=== PATIENT | female | born 1970 | race Asian ===

== ENCOUNTER 2023-02-07 08:28 | Outpatient (RCR) | payer OTHER | END 2023-02-23 | disposition home or self-care (01) | LOC: WSPT | DX: I89.0 Lymphedema, not elsewhere classified (principal); Z98.890 Other specified postprocedural states; Z90.11 Acquired absence of right breast and nipple ==

== ENCOUNTER 2023-03-05 08:00 | Outpatient (RCR) | payer OTHER | END 2023-03-26 | disposition home or self-care (01) | LOC: WSPT | DX: I89.0 Lymphedema, not elsewhere classified (principal); Z98.890 Other specified postprocedural states ==

== ENCOUNTER 2023-05-01 15:37 | Outpatient (RCR) | payer OTHER | END 2023-05-25 | disposition home or self-care (01) | LOC: WSPT | DX: I89.0 Lymphedema, not elsewhere classified (principal); Z90.11 Acquired absence of right breast and nipple; Z98.890 Other specified postprocedural states ==

== ENCOUNTER 2023-07-03 15:21 | Outpatient (RCR) | payer OTHER | END 2023-07-25 | LOC: WSPT | DX: Z98.890 Other specified postprocedural states (principal); I89.0 Lymphedema, not elsewhere classified ==

== ENCOUNTER → 2023-07-03 | Outpatient (CLI) | payer OTHER | LOC: MC.RAD 08:58 | DX: Z12.31 Encounter for screening mammogram for malignant neoplasm of breast (principal); Z85.3 Personal history of malignant neoplasm of breast; Z98.890 Other specified postprocedural states; Z92.3 Personal history of irradiation ==

== ENCOUNTER 2023-10-20 09:58 | Outpatient (RCR) | payer OTHER | END 2023-10-25 | disposition home or self-care (01) | LOC: WSPT | DX: I89.0 Lymphedema, not elsewhere classified (principal); Z98.890 Other specified postprocedural states ==